=== PATIENT | female | born 1975 | race Caucasian/White ===

== ENCOUNTER 2017-05-16 18:21 | Observation (INO) ==
--- NOTE | 2017-05-16 19:12 | Emergency Department Note ---
Disposition Clinical Impression: Influenza B Pneumonia Qualifiers: Pneumonia type: due to unspecified organism Laterality: right Lung location: upper lobe of lung Qualified Code(s): J18.1 - Lobar pneumonia, unspecified organism Disposition: Admitted As Inpatient Condition: Good Referrals: Antoinette Sahu CNP [Primary Care Provider] - [facility] [Outside] Forms: ED Satisfaction Letter Time of Disposition: 21:44 General Adult HPI - General Chief complaint: ED Shortness of Breath/Dyspnea Stated complaint: Cough, NELLI Time Seen by Provider: 05/16/17 18:34 Source: patient, family Limitations: no limitations Nursing Notes Reviewed: Yes Vital Signs Reviewed: Yes - History of Present Illness HPI Narrative: Patient is a 41-year-old female presents to the emergency department for cough and shortness of breath. She states that this is been ongoing for approximately a month however has recently gotten worse and she has developed body aches and overall not feeling well. States that she has not been able to eat or sleep. She states that she is recently been seen at urgent care twice and was given antibiotics and a course of prednisone which she finished today. Patient denies any nausea or vomiting but states she has has had diarrhea. She states that she has had the cough with associated body aches and runny nose area and patient reports chest pain that she associates with her cough and states that it is sharp and radiates into her back and rates as a 5 out of 10. Pain Scale: 5 - Related Data Allergies Allergy/AdvReac Type Severity Reaction Status Date / Time No Known Allergies Allergy Verified 04/18/17 18:04 Cardiovascular: Reports: chest pain Respiratory: Reports: cough, dyspnea Gastrointestinal: Reports: diarrhea. 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 history - Social History Smoking Status: Current every day smoker Smokeless Tobacco Status: No Alcohol use: Reports: none Drug use: Reports: none Physical Exam - General Limitations: no limitations General appearance: alert, in no apparent distress - Head Head exam: atraumatic, normocephalic - Eye Eye exam: Present: normal appearance, EOMI - Neck Neck exam: Present: normal inspection, full ROM, trachea midline - Respiratory Respiratory exam: Absent: normal lung sounds bilaterally (Decreased breath sounds bilaterally) - Cardiovascular Cardiovascular exam: Present: regular rate, normal rhythm, normal heart sounds, +S1, +S2 - Abdominal Exam Abdominal exam: Present: soft, Non-Tender, normal bowel sounds - Neurological Exam Neurological exam: Present: alert, oriented X3 - Psychiatric Psychiatric exam: Present: normal affect, normal mood - Skin Skin exam: Present: warm, dry, intact Course Vital Signs Temperature 98.2 F 05/16/17 18:21 Pulse Rate 99 05/16/17 18:21 Respiratory Rate 22 05/16/17 18:21 Blood Pressure 142/91 05/16/17 18:21 O2 Sat by Pulse Oximetry 92 05/16/17 18:21 Temperature 98.2 F 05/16/17 18:21 Pulse Rate 99 05/16/17 18:21 Respiratory Rate 22 05/16/17 18:21 Blood Pressure 142/91 05/16/17 18:21 O2 Sat by Pulse Oximetry 92 05/16/17 18:21 Oxygen Delivery Oxygen Delivery Room Air Medical Decision Making - MDM Narrative Medical decision making narrative: The patient presented with cough and shortness of breath with his CBC, BMP, BNP , EKG chest x-ray influenza, lipase, d-dimer and hepatic panel. The patient's chest x-ray showed no acute process per radiology read. The patient's d-dimer was 521 which is slightly elevated so we will do a CTA of the chest to evaluate for possible pulmonary embolus. The patient's CBC was unremarkable, troponin was negative and her BNP was negative. EKG shows sinus rhythm. CT of the chest was negative for pulmonary embolus however it did show a possible right upper lobe pneumonia. Patient also was positive for influenza B. These findings have been relayed to the patient and they have expressed understanding of these findings. The patient was road tested and she started at 90% and her oxygen saturation went down to 87% after ambulation. The patient will need to be admitted to the hospital for further evaluation and management. We will start the patient on Rocephin due to the pneumonia findings. A call and spoke with the hospitalist and they have requested that we start the patient on Tamiflu. This will be done here in the emergency department. The patient will be admitted to the hospital for further evaluation and management. - Medical Records Medical records reviewed: Yes I reviewed the patient's medical records. - Lab Data Lab results reviewed: Yes I reviewed the patient's lab results. Result diagrams: 05/16/17 19:15 05/16/17 19:15 Lab Results 05/16/17 05/16/17 05/16/17 Range/Units 19:15 19:15 19:15 WBC (4.3-11.1) K/mcL RBC (3.82-4.97) M/mcL Hgb (11.5-15.4) g/dL Hct (35.3-44.9) % MCV (83.0-100.0) fL MCH (28.0-33.3) pg MCHC (31.6-35.5) g/dL RDW (11.5-14.5) % Plt Count (140-400) K/mcL MPV (9.4-12.4) fL Immature Gran % (0-4) % Seg Neutrophils % % Lymphocytes % % Monocytes % % Eosinophils % % Basophils % % Neutrophils # (1.6-8.9) K/mcL Lymphocytes # (0.6-4.6) K/mcL Monocytes # (0.0-1.3) K/mcL Eosinophils # (0.0-0.6) K/mcL Basophils # (0.0-0.2) K/mcL Platelet Estimate (Normal) PT 10.4 (9.4-12.1) Seconds INR 1.0 APTT 27.1 (26.0-36.0) Seconds D-Dimer 521 H (0-500) ng/mLFEU Sodium (136-145) mEq/L Potassium (3.5-5.1) mEq/L Chloride (98-107) mEq/L Carbon Dioxide (23-29) mEq/L BUN (6-20) mg/dL Creatinine (0.60-1.20) mg/dL Est GFR ( Amer) (> 60) Est GFR (Non-Af Amer) (> 60) BUN/Creatinine Ratio (6-26) Glucose (70-105) mg/dL Calculated Osmolality (280-300) Calcium (8.6-10.3) mg/dL Total Bilirubin 0.2 L (0.3-1.0) mg/dL Direct Bilirubin 0.1 (0.0-0.2) mg/dL Indirect Bilirubin 0.1 (0.0-1.2) mg/dL AST 23 (13-39) Units/L ALT 23 (7-52) Units/L Alkaline Phosphatase 70 (34-104) Units/L Troponin I (< 0.04) ng/mL B-Natriuretic Peptide 15 (Less than 100) pg/mL Serum Total Protein 7.1 (6.4-8.9) g/dL Albumin 3.7 (3.5-5.7) g/dL Globulin 3.4 (2.4-3.5) g/dL Albumin/Globulin Ratio 1.1 (1.1-2.2) Lipase 23 (11-82) Units/L 05/16/17 05/16/17 05/16/17 Range/Units 19:15 19:15 19:15 WBC 5.6 (4.3-11.1) K/mcL RBC 4.56 (3.82-4.97) M/mcL Hgb 14.3 (11.5-15.4) g/dL Hct 42.9 (35.3-44.9) % MCV 94.1 (83.0-100.0) fL MCH 31.4 (28.0-33.3) pg MCHC 33.3 (31.6-35.5) g/dL RDW 14.0 (11.5-14.5) % Plt Count 264 (140-400) K/mcL MPV 9.4 (9.4-12.4) fL Immature Gran % 0.7 (0-4) % Seg Neutrophils % 63.0 % Lymphocytes % 21.7 % Monocytes % 14.2 % Eosinophils % 0.0 % Basophils % 0.4 % Neutrophils # 3.5 (1.6-8.9) K/mcL Lymphocytes # 1.2 (0.6-4.6) K/mcL Monocytes # 0.8 (0.0-1.3) K/mcL Eosinophils # 0.0 (0.0-0.6) K/mcL Basophils # 0.0 (0.0-0.2) K/mcL Platelet Estimate Normal (Normal) PT (9.4-12.1) Seconds INR APTT (26.0-36.0) Seconds D-Dimer (0-500) ng/mLFEU Sodium 135 L (136-145) mEq/L Potassium 3.2 L (3.5-5.1) mEq/L Chloride 98 (98-107) mEq/L Carbon Dioxide 28 (23-29) mEq/L BUN 6 (6-20) mg/dL Creatinine 0.66 (0.60-1.20) mg/dL Est GFR ( Amer) > 60 (> 60) Est GFR (Non-Af Amer) > 60 (> 60) BUN/Creatinine Ratio 9 (6-26) Glucose 139 H (70-105) mg/dL Calculated Osmolality 280 (280-300) Calcium 8.9 (8.6-10.3) mg/dL Total Bilirubin (0.3-1.0) mg/dL Direct Bilirubin (0.0-0.2) mg/dL Indirect Bilirubin (0.0-1.2) mg/dL AST (13-39) Units/L ALT (7-52) Units/L Alkaline Phosphatase (34-104) Units/L Troponin I < 0.03 (< 0.04) ng/mL B-Natriuretic Peptide (Less than 100) pg/mL Serum Total Protein (6.4-8.9) g/dL Albumin (3.5-5.7) g/dL Globulin (2.4-3.5) g/dL Albumin/Globulin Ratio (1.1-2.2) Lipase (11-82) Units/L - Radiology Data Radiology results reviewed: Yes I reviewed the patient's radiology results. Chest X-Ray 05/16/17 18:35 IMPRESSION: No acute process. D/ / Ryan Conroy MD / Ryan Conroy MD Interpreting Provider: Ryan Conroy MD Chest CTA 05/16/17 19:49 IMPRESSION: No CT evidence of pulmonary embolism. Right upper lobe bronchial wall thickening as well as patchy areas of ground-glass opacity, likely infectious airways disease/pneumonia. Fatty infiltration of the liver. D/ / Jenn Ramirez Cha, MD / Jenn Ramirez Cha, MD Interpreting Provider: Jenn Ramirez Cha, MD - EKG Data EKG #1 EKG attestation: Yes I reviewed and interpreted this EKG. EKG results narrative: Patient's EKG shows a sinus rhythm at a rate of 96 bpm, AL interval of 138, QRS duration of 92, QTC of 412 with a normal axis. There is no STEMI noted on EKG. Previous EKG on 08/21/16 showed a sinus tachycardia at a rate of 117 bpm
[2017-05-16] MEDS ORDERED: Ipratropium/Albuterol Neb 3 ML IH ONE (19:17)
[2017-05-16 19:24] LABS: Basophils % 0.4 %; Hematocrit 42.9 % (35.3-44.9); Hemoglobin 14.3 g/dL (11.5-15.4); Immature Granulocytes % 0.7 % (0-4); Lymphocytes # 1.2 K/mcL (0.6-4.6); Lymphocytes % 21.7 %; Mean Corpuscular HGB Conc 33.3 g/dL (31.6-35.5); Mean Corpuscular Hemoglobin 31.4 pg (28.0-33.3); Mean Corpuscular Volume 94.1 fL (83.0-100.0); Mean Platelet Volume 9.4 fL (9.4-12.4); Monocytes # 0.8 K/mcL (0.0-1.3); Monocytes % 14.2 %; Neutrophils # 3.5 K/mcL (1.6-8.9); Platelet Count 264 K/mcL (140-400); Red Blood Count 4.56 M/mcL (3.82-4.97)
[2017-05-16 19:34] LABS: Prothrombin Time 10.4 Seconds (9.4-12.1)
[2017-05-16 19:43] LABS: Activated Partial Thrombo Time 27.1 Seconds (26.0-36.0)
[2017-05-16 19:52] LABS: Platelet Estimate Normal (Normal)
--- NOTE | 2017-05-16 20:01 | Emergency Department Note ---
START Narrative - START START: I examined this patient and my medical decision-making was reviewed with the Resident Physician. I agree with the documented findings, disposition and treatment plan as described except to the extent set forth below. 41 year old female presenst to the eD with complints of bornchitis and cough wth dyspnea and she is 1ppd smoker and has been trying to cut down. APtinet has obvisous bronchospasms on examw ith wheezing We will tret her with duonebs and do a cardiac workup. Due to elevated D-dimer we will proceed with a cTA chest to rule out PE. We will proceed with walk test due to negative troponin and re- evalaute. If she has exertional dyspnea or becomes hypoxic or tachcyardiac we will admit for COPD exceratbion.
[2017-05-16 20:02] LABS: BUN/Creatinine Ratio 9 (6-26); Blood Urea Nitrogen 6 mg/dL (6-20); Calcium 8.9 mg/dL (8.6-10.3); Carbon Dioxide 28 mEq/L (23-29); Chloride 98 mEq/L (98-107); Glucose 139 mg/dL (70-105); Osmolality,Calculated 280 (280-300); Potassium 3.2 mEq/L (3.5-5.1); Sodium 135 mEq/L (136-145); eGFR For African Americans > 60 (> 60); eGFR For Non-African Americans > 60 (> 60)
[2017-05-16 20:03] LABS: Albumin 3.7 g/dL (3.5-5.7); Albumin/Globulin Ratio 1.1 (1.1-2.2); Bilirubin,Direct 0.1 mg/dL (0.0-0.2); Bilirubin,Indirect 0.1 mg/dL (0.0-1.2); Bilirubin,Total 0.2 mg/dL (0.3-1.0); Globulin 3.4 g/dL (2.4-3.5); Total Protein 7.1 g/dL (6.4-8.9)
[2017-05-16] MEDS ORDERED: cefTRIAXone 1,000 MG in Water for inj. (sterile) 10 ML IVP ONE (21:42)
[2017-05-16] MEDS ORDERED: Naloxone 0.4 MG/ML INJ IVP PRN (22:59)
[2017-05-16] MEDS ORDERED: Acetaminophen 325 MG TABLET PO PRN (23:14)
[2017-05-16] MEDS ORDERED: Ondansetron 4 MG/2 ML VIAL IVP PRN (23:19)
[2017-05-16] MEDS ORDERED: Ketorolac 30 MG/ML VIAL IM PRN (23:19)
[2017-05-16] MEDS ORDERED: Albuterol 2.5 MG/3 ML NEBULIZER IH PRN (23:19)
--- NOTE | 2017-05-16 23:29 | Internal Med History&Physical ---
<William Solitario - Last Filed: 05/17/17 03:26> Date of Encounter: 05/17/17 Time of Encounter: 23:15 Assessment and Plan (1) Influenza B Current visit: Yes Status: Acute Positive rapid strep; some concern of possible CAP based on imaging reports Ambulatory hypoxia in ED Start Rocephin & Azithromycin IV qd Mildly tachycardic at rest; will bolus 1L NS and continue IVF at 125mL/hr Will continue 5 day course of Tamiflu for influenza B O2 as needed for resting hypoxia; Duoneb q6h JIN, and Alb neb q2h PRN Will start prednisone burst due to wheeze on exam and hypoxia; 40mg daily x5 days Patient on droplet precautions (2) Hypoxia Current visit: Yes Status: Acute Secondary to influenza/PNA Plan as above (3) Hypokalemia Current visit: Yes Status: Acute Replenish with PO K+ Monitor BMP in AM (4) Tobacco dependence Current visit: Yes Status: Acute <1/2 ppd smoker Offered TD Nicotine patch; patient declines (5) DVT prophylaxis Current visit: Yes Status: Acute subcutaneous heparin due to ambulatory hypoxia Internal Medicine - H&P: HPI Chief complaint: shortness of breath Admitted From: Emergency Dept Plans for Post Hospital Care: Home History of present illness: Ms. Lyn is a 41 year old female with history of smoking admitted via ED for hypoxia secondary to influenza B and RUL pneumonia as demonstrated on CTA. Patient states 5-day history of flu-like symptoms including cough, congestion, body aches, chills, fatigue, and shortness of breath. States symptoms improved yesterday, but woke up today with worsening of symptoms, chiefly, shortness of breath. Does have some rib margin, abdominal wall, and back pain she says feels like soreness and is worse when coughing. Denies any diaphoresis, syncope /presyncope, palpitations, retrosternal pain, sputum production, nausea/vomiting , dysuria, diarrhea, or any pedal edema. Went to ED for further evaluation. ED workup unremarkable except for elevated D -dimer, follow up CTA-chest demonstrating right lobar infiltrate (but negative for PE), positive rapid flu for influenza B, and mild hypokalemia. Normal CBC, negative BNP/Troponin, negative CXR, EKG apparently demonstrated NSR, and negative lipase. Patient failed ambulatory challenge in ED desaturating into the mid-80s, therefore decision to admit was made. Patient given single dose of Rocephin and Tamiflu in ED and transferred to medical floor. Patient asymptomatic at this time aside from cough and aforementioned soreness; conversational on room air with no signs of distress. Past Med Surg Social Fam HX - Past Medical History Attestation: Yes The following information was validated with the patient. Source: patient Medical history: no medical history, GERD Psychiatric history: no psych history - Social History Smoking Status: Current every day smoker Smokeless Tobacco Status: No Alcohol use: none Drug use: none - Family History Mother Living Status: Age at : 59 Cause of : COPD Hx Family Respiratory Disorders: Yes (COPD) Internal Medicine - H&P: Meds Omeprazole [PriLOSEC] 40 mg PO DAILY 05/16/17 [History] 3 Allergy/AdvReac Type Severity Reaction Status Date / Time No Known Allergies Allergy Verified 04/18/17 18:04 All Systems PM: A 10-system review of systems was performed and is negative for pertinent findings except as documented above in the HPI. - Constitutional Vitals: Temp Pulse Resp BP Pulse Ox 98.5 F 104 14 130/78 91 05/16/17 23:01 05/16/17 23:01 05/16/17 23:01 05/16/17 23:01 05/16/17 23:01 General appearance: Present: A&O X 3, no acute distress, answers questions appropriately - Head Head exam: Present: normal inspection - Eye Eye exam: Present: normal appearance, PERRL, sclera anicteric. Absent: conjunctival injection - ENT ENT exam: Present: normal exam - Neck Neck exam general surgery: Present: trachea midline. Absent: nuchal rigidity - Respiratory Respiratory exam: Present: decreased breath sounds (RUL with transient expiratory wheeze). Absent: accessory muscle use, prolonged expiratory phase - Cardiovascular Cardiovascular exam: Present: +S1, +S2, tachycardia. Absent: diastolic murmur, JVD, +S3, +S4, systolic murmur - GI/Abdominal GI/Abdominal exam: Present: soft. Absent: tenderness - Extremities Exam Extremities exam: Present: radial pulses palpable and symmetrical. Absent: pedal edema - Skin Skin exam: Present: normal color. Absent: cyanosis, diaphoretic, mottled, pallor, rash (no rash to exposed skin) Internal Med - H&P Results - Labs CBC & Chem 7: 05/16/17 19:15 05/16/17 19:15 <Matthew Murrieta - Last Filed: 05/17/17 04:55> Date of Encounter: 05/17/17 Time of Encounter: 02:20 Past Med Surg Social Fam HX - Past Medical History Source: patient Medical history: GERD Psychiatric history: no psych history - Past Surgical History Surgical History: no surgical history - Social History Smoking Status: Current every day smoker Alcohol use: none Drug use: none Current living situation: Home Activity Level: Independent ambulation Recent Out of Country Travel Within the Last 8 Weeks: No - Constitutional Constitutional: chills, fever(s), malaise, no night sweats - EENT Eyes: no blurry vision, no change in vision Ears: no ear pain, no tinnitus Nose, mouth and throat: nasal congestion, sore throat, no sinus pain, no sinus pressure - Cardiovascular Cardiovascular ROS IM: dyspnea, dyspnea on exertion, no chest pain, no orthopnea , no paroxysmal nocturnal dyspnea, no syncope - Respiratory Respiratory: cough, dyspnea, no hemoptysis, no chest congestion, no excessive phlegm production, no change in phlegm color - Gastrointestinal Gastrointestinal: nausea, no abdominal pain, no diarrhea, no hematemesis, no hematochezia, no melena, no vomiting - Genitourinary Genitourinary: no dysuria, no flank pain, no hematuria - Musculoskeletal Musculoskeletal ROS IM: arthralgias, myalgias, no back pain - Integumentary Integumentary IM: no rash, no jaundice - Neurological Neurological ROS: no dizziness, no focal weakness, no headache(s), no weakness - Psychiatric Psychiatric: no anxiety, no depression - Endocrine Endocrine IM: no polydipsia, no polyuria - Hematologic/Lymphatic Hematologic/Lymphatic: no easy bruising, no lymphadenopathy - Allergic/Immunologic Allergic/Immunologic: wheezing, no GI upset with certain foods - Constitutional Vitals: Temp Pulse Resp BP Pulse Ox 98.7 F 99 18 103/73 98 05/17/17 04:07 05/17/17 04:07 05/17/17 04:12 05/17/17 04:07 05/17/17 04:12 General appearance: Present: A&O X 3, no acute distress, answers questions appropriately - Head Head exam: Present: normal inspection - Eye Eye exam: Present: PERRL. Absent: scleral icterus - ENT ENT exam: Present: mucous membranes dry, normal exam - Neck Neck exam general surgery: Present: full ROM, normal inspection, supple, trachea midline. Absent: tenderness, nuchal rigidity - Respiratory Respiratory exam: Present: decreased breath sounds, rhonchi, wheezes (diffuse scattered wheezes). Absent: accessory muscle use, chest wall tenderness, rales , respiratory distress - Cardiovascular Cardiovascular exam: Present: +S1, +S2. Absent: diastolic murmur, systolic murmur - GI/Abdominal GI/Abdominal exam: Present: normal bowel sounds, soft. Absent: hepatomegaly, mass, splenomegaly - Extremities Exam Extremities exam: Present: full ROM, warm, radial pulses palpable and symmetrical. Absent: calf tenderness, joint swelling - Back Exam Back exam: Absent: CVA tenderness (L), CVA tenderness (R) - Neurological Exam Neurological exam: Present: alert, oriented X3, no focal deficits - Psychiatric Psychiatric exam: Present: normal affect, normal mood - Skin Skin exam: Present: dry, warm. Absent: rash Internal Med - H&P Results - Labs CBC & Chem 7: 05/16/17 19:15 05/16/17 19:15 - Diagnostic Studies Chest x-ray Status: image reviewed by me (negative) - Attending Attestation I discussed the patient [place], PMH, ROS, lab data, and exam findings with Dr. Solitario. I then saw and examined patient independently as well. Patient is audbily wheezing. She appears ill and non-toxic. I viewed her CXR and chest CT -- I do not appreciate a pneumonia on imaging or exam. However, given her 5- 6 days of symtpoms and likely acute Influenza, she is at risk of developing pneumonia. We will treat her empirically for possible pneumonia as well as Influenza. We will wean oxygen as able. Patient counseled at length on the need to quit smoking. Other than my comments above and noted exam findings, I agree with Dr. Solitario assessment and plan.
[2017-05-16] MEDS ORDERED: 0.9 % Sodium Chloride 1,000 ML IVC ONE (23:41)
[2017-05-17] MEDS: cefTRIAXone 1,000 MG in Water for inj. (sterile) 20 ML 10 ML IVP SCH (00:28)
[2017-05-17] MEDS: Azithromycin 500 MG in D5% in Water 250 ML IVPB SCH (00:29)
[2017-05-17] MEDS: 0.9 % Sodium Chloride 1,000 ML IVC SCH ×2 (02:45→08:38)
[2017-05-17] MEDS: Ipratropium/Albuterol Neb 3 ML IH SCH ×4 (04:11→22:02)
[2017-05-17 05:44] LABS: Basophils % 0.4 %; Immature Granulocytes % 0.4 % (0-4); Lymphocytes # 2.4 K/mcL (0.6-4.6); Mean Corpuscular HGB Conc 32.9 g/dL (31.6-35.5); Mean Corpuscular Hemoglobin 31.3 pg (28.0-33.3); Mean Platelet Volume 9.8 fL (9.4-12.4); Monocytes % 13.9 %; Platelet Count 280 K/mcL (140-400); Red Cell Distribution Width 14.2 % (11.5-14.5); Segmented Neutrophils % 53.3 %
[2017-05-17 05:52] LABS: Hemoglobin 12.5 g/dL (11.5-15.4); Neutrophils # 3.9 K/mcL (1.6-8.9)
[2017-05-17] MEDS: *HR* Heparin 5,000 UNIT/ML VIAL SQ SCH ×2 (06:05→18:25)
[2017-05-17 06:13] LABS: BUN/Creatinine Ratio 10 (6-26); Blood Urea Nitrogen 7 mg/dL (6-20); Carbon Dioxide 25 mEq/L (23-29); Chloride 101 mEq/L (98-107); Glucose 107 mg/dL (70-105); Osmolality,Calculated 280 (280-300); Sodium 136 mEq/L (136-145); eGFR For African Americans > 60 (> 60); eGFR For Non-African Americans > 60 (> 60)
[2017-05-17 06:20] LABS: Platelet Estimate Normal (Normal)
[2017-05-17 07:59] LABS: Magnesium 1.7 mg/dL (1.6-2.6)
--- NOTE | 2017-05-17 08:30 | Discharge Summary ---
Date of Encounter: 05/17/17 - Discharge Medications Home Medications: Omeprazole [PriLOSEC] 40 mg PO DAILY 05/16/17 [History] Allergies/Adverse Reactions: 3 Allergy/AdvReac Type Severity Reaction Status Date / Time No Known Allergies Allergy Verified 04/18/17 18:04 Date of admission: 05/16/17 22:03 Primary care physician: Antoinette Sahu Consults: 05/16/17 22:59 Consult to Nurse Navigator [CONS] Routine Comment: - Patient Status Condition: Good - Discharge Instructions Follow Up With: Antoinette Sahu, MANUFA[employer]URING PLANT MANAGER [Primary Care Provider] - Hospital course: Ms. Lyn is a 41 year old female - Time Spent with Patient Total time spent providing and/or coordinating discharge services: - Constitutional Vitals: Temp Pulse Resp BP Pulse Ox 98.7 F 96 18 125/75 93 05/17/17 08:22 05/17/17 08:22 05/17/17 08:22 05/17/17 08:22 05/17/17 08:22 General appearance: Present: A&O X 3, no acute distress, answers questions appropriately
--- NOTE | 2017-05-17 10:32 | Internal Med Progress Note ---
<Kenneth Loya - Last Filed: 05/17/17 11:36> Date of Encounter: 05/17/17 Time of Encounter: 10:27 - Assessment and plan (1) Influenza B Current Visit: Yes Status: Acute Assessment and plan: Positive for Influenza B - Continue 5 day course of tamiflu. Currently day 2 - Continue 2L supplemental O2 by nasal cannula - Continue duoneb q6H maxine and albuterol q2 PRN - On prednisone 40 mg QD x5 days. On day 2 - Patient on droplet precautions - Start Prednisone 20mg daily (2) Pneumonia Current Visit: Yes Status: Acute Assessment and plan: Possible right upper lobe pneumonia based on CT - Continue Rocephin and azithromycin - Continue IV fluids - Continue 2L O2 supplementation by nasal cannula as needed - Continue duoneb q6H maxine and albuterol q2 PRN Qualifiers: Pneumonia type: due to unspecified organism Laterality: right Lung location: upper lobe of lung Qualified Code(s): J18.1 - Lobar pneumonia, unspecified organism (3) Diarrhea Current Visit: Yes Status: Acute Assessment and plan: Stool panel ordered. - Continue IV fluids - Continue rocephin and azithromycin IV Qualifiers: Qualified Code(s): R19.7 - Diarrhea, unspecified (4) Hypoxia Current Visit: Yes Status: Acute Assessment and plan: Improved. likely secondary to Flu B/PNA (5) Hypokalemia Current Visit: Yes Status: Acute Assessment and plan: Potassium 3.0 this A KCL 40mg ordered Monitor BMP in AM (6) Tobacco dependence Current Visit: Yes Status: Acute Assessment and plan: <1/2 ppd smoker Offered TD Nicotine patch; patient declines (7) Hypocalcemia Current Visit: Yes Status: Acute Assessment and plan: Replenish with calcium carbonate. (8) DVT prophylaxis Current Visit: Yes Status: Acute Assessment and plan: Sq heparin - Time Spent With Patient 25 - 35 minutes - Subjective Interval history: Patient seen and examined at bedside. She is sitting up in bed and states that she is not feeling much improved from yesterday. She states that she no longer short of breath, but feels weak and is still having diarrhea. Otherwise she has no acute complaints - Constitutional Vitals: Temp Pulse Resp BP Pulse Ox 98.7 F 96 18 125/75 93 05/17/17 08:22 05/17/17 08:22 05/17/17 09:28 05/17/17 08:22 05/17/17 09:28 General appearance: Present: A&O X 3, no acute distress, obese, answers questions appropriately - Head Head exam: Present: normal inspection - Neck Neck exam general surgery: Present: normal inspection - Respiratory Respiratory exam: Present: decreased breath sounds - Cardiovascular Cardiovascular exam: Present: RRR - GI/Abdominal GI/Abdominal exam: Present: soft. Absent: tenderness - Skin Skin exam: Present: normal color, warm Internal Medicine: Result - Labs CBC & Chem 7: 05/17/17 05:19 05/17/17 05:19 Labs: Short CBC 05/17/17 Range/Units 05:19 WBC 7.4 (4.3-11.1) K/mcL Hgb 12.5 D (11.5-15.4) g/dL Hct 38.0 (35.3-44.9) % Plt Count 280 (140-400) K/mcL Neutrophils # 3.9 (1.6-8.9) K/mcL BMP 05/17/17 05:19 Sodium 136 Potassium 3.0 L Chloride 101 Carbon Dioxide 25 BUN 7 Creatinine 0.68 Glucose 107 H Calcium 8.0 L - ABG Interpretation ABG results: PT/INR, D-dimer PT 10.4 Seconds (9.4-12.1) 05/16/17 19:15 D-Dimer 521 ng/mLFEU (0-500) H 05/16/17 19:15 Consult Discharge Plan - Plan Referrals: Antoinette Sahu, GREENHOUSE STAFF [Primary Care Provider] - <Ruiz Miller H - Last Filed: 05/17/17 13:29> Date of Encounter: 05/17/17 - Constitutional Vitals: Temp Pulse Resp BP Pulse Ox 98.2 F 92 15 114/76 94 05/17/17 11:33 05/17/17 11:33 05/17/17 11:33 05/17/17 11:33 05/17/17 11:33 Internal Medicine: Result - Labs CBC & Chem 7: 05/17/17 05:19 05/17/17 11:35 Labs: Short CBC 05/17/17 Range/Units 05:19 WBC 7.4 (4.3-11.1) K/mcL Hgb 12.5 D (11.5-15.4) g/dL Hct 38.0 (35.3-44.9) % Plt Count 280 (140-400) K/mcL Neutrophils # 3.9 (1.6-8.9) K/mcL BMP 05/17/17 05/17/17 05:19 11:35 Sodium 136 138 Potassium 3.0 L 3.0 L Chloride 101 103 Carbon Dioxide 25 25 BUN 7 6 Creatinine 0.68 0.68 Glucose 107 H 140 H Calcium 8.0 L 8.0 L - ABG Interpretation ABG results: PT/INR, D-dimer PT 10.4 Seconds (9.4-12.1) 05/16/17 19:15 D-Dimer 521 ng/mLFEU (0-500) H 05/16/17 19:15 - Attending Attestation Community-acquired pneumonia, in combination with influenza B Continue antibiotics and Tamiflu I examined this patient and my medical decision-making was reviewed with the Resident Physician. I agree with the documented findings, disposition and treatment plan as described except to the extent set forth below.
[2017-05-17 12:16] LABS: BUN/Creatinine Ratio 9 (6-26); Blood Urea Nitrogen 6 mg/dL (6-20); Carbon Dioxide 25 mEq/L (23-29); Chloride 103 mEq/L (98-107); Glucose 140 mg/dL (70-105); Osmolality,Calculated 286 (280-300); Sodium 138 mEq/L (136-145); eGFR For African Americans > 60 (> 60); eGFR For Non-African Americans > 60 (> 60)
[2017-05-17 22:46] LABS: Adenovirus F 40/41 PCR Not detected (Not detect); Astrovirus PCR Not detected (Not detect); C.difficile Toxin A/B by PCR Not detected (Not detect); Campylobacter by PCR Not detected (Not detect); Cryptosporidium by PCR Not detected (Not detect); Cyclospora cayetanensis PCR Not detected (Not detect); E. coli O157 by PCR Not detected (Not detect); Entamoeba histolytica PCR Not detected (Not detect); Enteroaggregative E.coli(EAEC) Not detected (Not detect); Enteropathogenic E.coli(EPEC) Not detected (Not detect); Enterotoxigenic E.coli (ETEC) Not detected (Not detect); Giardia lamblia PCR Not detected (Not detect); Norovirus GI/GII PCR Not detected (Not detect); Plesiomonas shigelloides PCR Not detected (Not detect); Rotavirus A PCR Not detected (Not detect); Salmonella PCR Not detected (Not detect); Sapovirus PCR Not detected (Not detect); Shig/EnteroinvasiveE coli EIEC Not detected (Not detect); Shigalike tox-prod E coli STEC Not detected (Not detect); Vibrio PCR Not detected (Not detect); Vibrio cholerae PCR Not detected (Not detect); Yersinia enterocolitica PCR Not detected (Not detect)
[2017-05-18] MEDS: Azithromycin 500 MG in D5% in Water 250 ML IVPB SCH (00:40)
[2017-05-18] MEDS: cefTRIAXone 1,000 MG in Water for inj. (sterile) 20 ML 10 ML IVP SCH (00:41)
[2017-05-18] MEDS ORDERED: CefTRIAXone 1,000 MG VIAL ONE (00:44)
[2017-05-18] MEDS: Ipratropium/Albuterol Neb 3 ML IH SCH ×2 (04:36→10:47)
[2017-05-18 05:01] VITALS: BP 134/85
[2017-05-18] MEDS: *HR* Heparin 5,000 UNIT/ML VIAL SQ SCH (05:55)
[2017-05-18 07:34] LABS: BUN/Creatinine Ratio 7 (6-26); Blood Urea Nitrogen 4 mg/dL (6-20); Calcium 7.9 mg/dL (8.6-10.3); Carbon Dioxide 30 mEq/L (23-29); Chloride 101 mEq/L (98-107); Glucose 119 mg/dL (70-105); Osmolality,Calculated 286 (280-300); Potassium 2.8 mEq/L (3.5-5.1); Sodium 139 mEq/L (136-145); eGFR For African Americans > 60 (> 60); eGFR For Non-African Americans > 60 (> 60)
[2017-05-18 07:48] LABS: Basophils % 0.5 %; Eosinophils % 0.3 %; Hematocrit 38.5 % (35.3-44.9); Hemoglobin 12.6 g/dL (11.5-15.4); Immature Granulocytes % 0.8 % (0-4); Lymphocytes % 44.8 %; Mean Corpuscular HGB Conc 32.7 g/dL (31.6-35.5); Mean Corpuscular Hemoglobin 31.5 pg (28.0-33.3); Mean Corpuscular Volume 96.3 fL (83.0-100.0); Mean Platelet Volume 9.9 fL (9.4-12.4); Monocytes # 0.6 K/mcL (0.0-1.3); Monocytes % 8.8 %; Platelet Count 260 K/mcL (140-400); Red Cell Distribution Width 14.2 % (11.5-14.5); Segmented Neutrophils % 44.8 %
[2017-05-18 08:49] LABS: Platelet Estimate Normal (Normal)
[2017-05-18] MEDS ORDERED: PrednisoLONE Oral Soln 15 MG/5 ML UDC PO SCH (09:00)
--- NOTE | 2017-05-18 10:11 | Discharge Summary ---
<Paul Aguirre - Last Filed: 05/18/17 10:19> Date of Encounter: 05/18/17 Time of Encounter: 09:59 - Discharge Diagnosis (1) Pneumonia Priority: Primary Status: Acute Qualifiers: Pneumonia type: due to unspecified organism Laterality: right Lung location: upper lobe of lung Qualified Code(s): J18.1 - Lobar pneumonia, unspecified organism (2) Influenza B Priority: Secondary Status: Acute (3) Hypoxia Priority: Secondary Status: Acute (4) Hypokalemia Priority: Secondary Status: Acute (5) Tobacco dependence Priority: Secondary Status: Acute (6) Diarrhea Priority: Secondary Status: Acute Qualifiers: Qualified Code(s): R19.7 - Diarrhea, unspecified - Discharge Medications Prescriptions: Azithromycin [Zithromax] 250 mg PO DAILY #3 tablet Cefdinir [Omnicef] 300 mg PO BID #6 capsule Guaifenesin [Mucinex] 600 mg PO BID PRN #20 tab.er.12h PRN Reason: Cough Oseltamivir [Tamiflu] 75 mg PO BID #6 capsule Home Medications: Omeprazole [PriLOSEC] 40 mg PO DAILY 05/16/17 [History] Azithromycin [Zithromax] 250 mg PO DAILY #3 tablet 05/18/17 [Rx] Cefdinir [Omnicef] 300 mg PO BID #6 capsule 05/18/17 [Rx] Guaifenesin [Mucinex] 600 mg PO BID PRN #20 tab.er.12h 05/18/17 [Rx] Oseltamivir [Tamiflu] 75 mg PO BID #6 capsule 05/18/17 [Rx] Allergies/Adverse Reactions: 3 Allergy/AdvReac Type Severity Reaction Status Date / Time No Known Allergies Allergy Verified 04/18/17 18:04 Date of admission: 05/16/17 22:03 Primary care physician: Antoinette Sahu Consults: 05/16/17 22:59 Consult to Nurse Navigator [CONS] Routine Comment: Discharging clinician: Paul Aguirre Anticipated date of discharge: 05/18/17 - Patient Status Disposition: Home, Self-Care Condition: Good Functional capacity at discharge: independent ambulation Overall status at discharge: patient is progressing back to baseline - Discharge Instructions Follow Up With: Antoinette Sahu, [employer] [Primary Care Provider] - 05/25/17 9:00 am Additional Instructions: Please follow up with your PCP as scheduled Take your antibiotics and tamiflu for 3 more days - Diet and Activity Activity: increase activity as tolerated Diet: advance to your usual diet Hospital course: Ms. Lyn is a 41 year old female who presented with shortness of breath for 5 days along with cough, congestion, body aches. She was found to have Flu B and d -dimer was elevated and warranted a CTA which showed right upper lobe pneumonia. She was put on Tamiflu, Zithromax, and and Rocephin. Patient also developed some diarrhea shortly after admission but an GIP was negative. Her diarrhea has since resolved. Her potassium was low due to her diarrhea but has been replaced. She stated her breathing was improving today and she is ready to home. She will be going on home on 3 more days of Tamiflu, Zithromax, and Cefdnir. She is also requesting an expectorant and will be given Mucinex. She is saturating well in the 90s on room air today and will not need additional oxygen at home. - Time Spent with Patient Total time spent providing and/or coordinating discharge services: Greater than 30 minutes - Constitutional Vitals: Temp Pulse Resp BP Pulse Ox 98.3 F 101 16 134/85 91 05/18/17 05:00 05/18/17 05:00 05/18/17 05:00 05/18/17 05:00 05/18/17 05:00 General appearance: Present: cooperative, no acute distress, obese, answers questions appropriately - Head Head exam: Present: atraumatic, normocephalic - Eye Eye exam: Present: PERRL, conjuntiva pink, sclera anicteric - Neck Neck exam general surgery: Present: supple, trachea midline. Absent: lymphadenopathy - Respiratory Respiratory exam: Present: decreased breath sounds. Absent: accessory muscle use, rales, rhonchi, wheezes - Cardiovascular Cardiovascular exam: Present: RRR, +S1, +S2. Absent: diastolic murmur, gallop, rubs, systolic murmur - GI/Abdominal GI/Abdominal exam: Present: normal bowel sounds, soft, no peritoneal signs. Absent: distended, tenderness - Extremities Exam Extremities exam: Present: warm, radial pulses palpable and symmetrical. Absent : calf tenderness, cyanotic, pedal edema - Neurological Exam Neurological exam: Present: alert, no focal deficits. Absent: facial droop, speech deficit - Skin Skin exam: Present: dry, intact <Ruiz Miller H - Last Filed: 05/18/17 11:12> Date of Encounter: 05/18/17 Date of admission: 05/16/17 22:03 Primary care physician: Antointete Sahu Consults: 05/16/17 22:59 Consult to Nurse Navigator [CONS] Routine Comment: Hospital course: Ms. Lyn is a 41 year old female - Time Spent with Patient Total time spent providing and/or coordinating discharge services: - Constitutional Vitals: Temp Pulse Resp BP Pulse Ox 98.3 F 101 18 134/85 93 05/18/17 05:00 05/18/17 05:00 05/18/17 10:49 05/18/17 05:00 05/18/17 10:49 - Attending Attestation Community-acquired pneumonia, influenza B Continue cefdinir, azithromycin and Tamiflu Time spent on this discharge 40 minutes I examined this patient and my medical decision-making was reviewed with the Resident Physician. I agree with the documented findings, disposition and treatment plan as described except to the extent set forth below.
--- NOTE | 2017-05-18 12:59 | Electrocardiograph Report ---
[address] [place] [id number] Test Date: 2017-05-16 Pat Name: Avery Lyn Department: 104 Room: 3A Gender: F [employer]apper: CYRIL : 1975 Requested By: Shauna Turcios Order Number: [id number] Reading MD: Brock Torres Measurements Intervals Brandt Rate: 96 P: 62 CA: 138 QRS: 57 QRSD: 92 T: 36 QT: 358 QTc: 412 Interpretive Statements SINUS RHYTHM NONSPECIFIC ST & T-WAVE ABNORMALITY Electronically Signed On 05-18-2017 12:57:31 EST by Brock Torres
== END 2017-05-18 13:25 | disposition home or self-care (01) ==
LOC: 3ANU 18:21 → EMEROO 18:21 → 3ANU 22:30
PROVIDERS: ADMIT Pediatrics; ATTEND Internal Medicine